=== PATIENT | female | born 1975 | race Caucasian/White ===

== ENCOUNTER 2020-11-09 18:39 | Emergency (ER) | payer MEDICAID ==
[~2020-11-09] VITALS: Ht 162.6 cm; Wt 74.4 kg
[2020-11-09 19:08] VITALS: BP 138/73
--- NOTE | 2020-11-09 19:08 | NUR ---
TO BED AMBULATORY
--- NOTE | 2020-11-09 19:50 | NUR ---
45 Y/O FEMALE PRESENTED TO THE ED C/O 07/18 SHARP CRAMPING PAIN IN HER LOWER ABD THAT RADIATES TO HER BACK X3 DAYS. PT DENIES TRAUMA TO THE AREA, PT STATED THAT SHE HAS HAD PREVIOUS FIBROIDS AND THAT THIS PAIN IS DIFFERENT FROM THEN. PT STATES SHE IS NOT . DENIES N/V/DIARRHEA. +FEVER/CHILLS. PT DENIES INGESTION OF PAIN MEDS TODAY. ABD IS NOT TENDER, +SUPRAPUBIC TENDERNESS, BOWEL SOUNDS NORMOACTIVEX4 QUADRANTS. PMH: GALLBLADDER REMOVED IN 2012 [facility]
--- NOTE | 2020-11-09 20:56 | NUR ---
DR. SCHWAB AT BEDSIDE FOR MEDICAL EVALUATION
--- NOTE | 2020-11-09 21:00 | NUR ---
PT IS LAYING IN LOW FOWLERS POSITION FOR COMFORT, BED IS LOCKED AND IN LOWEST POSITION. SIDE RAILSX1. NO ACUTE DISTRESS NOTED.
[2020-11-09] MEDS ORDERED: NACL 0.9% 1,000 ML IV SCH (21:05)
[2020-11-09] MEDS ORDERED: ONDANSETRON 4 MG/2 ML VIAL IVP ONE (21:05)
[2020-11-09] MEDS ORDERED: MORPHINE SULFATE 4 MG/ML SYR IVP ONE (21:05)
[2020-11-09 21:22] LABS: BASOPHILS # (AUTO) 0.1 K/uL (0.00-0.22); BASOPHILS % (AUTO) 0.6 % (0.0-2.0); EOSINOPHILS # (AUTO) 0.1 K/uL (0-0.4); EOSINOPHILS % (AUTO) 0.7 % (0.0-4.0); HEMATOCRIT 25.2 % (36-48); HEMOGLOBIN 7.7 g/dL (12.0-16.0); LYMPHOCYTES # (AUTO) 2.5 K/uL (2.5-16.5); LYMPHOCYTES % (AUTO) 22.6 % (20.5-51.1); MEAN CORPUSCULAR HEMOGLOBIN 20 pg (27-31); MEAN CORPUSCULAR HGB CONC 31 g/dL (33-37); MONOCYTES # (AUTO) 1.1 K/uL (0.8-1.0); MONOCYTES % (AUTO) 10.1 % (1.7-9.3); NEUTROPHILS # (AUTO) 7.4 K/uL (1.8-7.7); PLATELET COUNT (AUTO) 387 K/uL (140-450); RED BLOOD CELL COUNT(AUTO) 3.93 MIL/uL (4.20-5.40); RED CELL DISTRIBUTION WIDTH 21.9 % (11.6-13.7); WHITE BLOOD COUNT (AUTO) 11.2 K/uL (4.8-10.8)
--- NOTE | 2020-11-09 21:34 | NUR ---
CONSENT FORM FOR CT SCAN WITH IV CONTRAST SIGNED AND PLACED IN CHART
--- NOTE | 2020-11-09 21:45 | NUR ---
COMPOSITE MECHANIC AT BEDSIDE
[2020-11-09 21:46] LABS: APPEARANCE,URINE SL CLOUDY (CLEAR); BILIRUBIN,URINE NEGATIVE (NEGATIVE); BLOOD, URINE TRACE-I (NEGATIVE); COLOR,URINE YELLOW (YELLOW); LEUKOCYTE ESTERASE ,URINE NEGATIVE (NEGATIVE); NITRITE, URINE NEGATIVE (NEGATIVE); UGLUCOSE NEGATIVE (NEGATIVE)
[2020-11-09 22:06] LABS: ALBUMIN 3.1 g/dL (3.4-5.0); CARBON DIOXIDE 25.9 mmol/L (21-32); CREATININE 0.7 mg/dL (0.6-1.3); POTASSIUM 3.9 mmol/L (3.5-5.1); TOTAL BILIRUBIN 0.4 mg/dL (0.0-1.0)
--- NOTE | 2020-11-09 22:26 | NUR ---
CALLED CT DEPT TO NOTIFY THEM THAT THE PT IS READY FOR CT AND CONSENT HAS BEEN SIGNED
--- NOTE | 2020-11-09 23:00 | NUR ---
PT IS LAYING IN SEMI FOWLERS POSITION FOR COMFORT, BED IS LOCKED AND IN LOWEST POSITION. SIDE RAILSX1. NO ACUTE DISTRESS NOTED.
[2020-11-09] MEDS ORDERED: KETOROLAC 15 MG/ML VIAL IVP ONE (23:25)
[2020-11-09 23:30] VITALS: BP 128/64
--- NOTE | 2020-11-10 00:08 | NUR ---
IV removed, catheter intact and site benign. Applied folded 4x4 gauze and tape to stop bleeding.
--- NOTE | 2020-11-10 00:10 | NUR ---
Patient discharged with v/s stable. Written and verbal after care instructions given and explained. Patient alert, oriented and verbalized understanding of instructions. Ambulatory with steady gait. All questions addressed prior to discharge. ID band removed. Patient advised to follow up with PMD. Rx of MOTRIN, TYLENOL, AND ZOFRAN given. Patient educated on indication of medication including possible reaction and side effects. Opportunity to ask questions provided and answered.
== END 2020-11-10 00:10 | disposition home or self-care (01) ==
LOC: MED 18:39
DX: D25.9 Leiomyoma of uterus, unspecified (principal); D64.9 Anemia, unspecified
CPT/HCPCS: 36415; 74177; 76856; 80053; 81003; 83690; 84703; 85025; 96361; 96374; 96375; 99285; J1885; J2270; J2405; J7030; Q9967

== ENCOUNTER 2020-11-13 08:30 | Emergency (ER) | payer MEDICAID ==
[~2020-11-13] VITALS: Ht 162.6 cm; Wt 73.5 kg
[2020-11-13 08:33] VITALS: BP 128/88
[2020-11-13] MEDS ORDERED: HYDROcodone/APAP 5/325 MG 1 TAB TAB PO ONE (09:00)
[2020-11-13] MEDS ORDERED: KETOROLAC 60 MG/2 ML VIAL IM ONE (09:00)
[2020-11-13 09:22] VITALS: BP 128/88
== END 2020-11-13 09:23 | disposition home or self-care (01) ==
LOC: MED 08:30
DX: D25.9 Leiomyoma of uterus, unspecified (principal); D64.9 Anemia, unspecified
CPT/HCPCS: 81002; 81025; 96372; 99283; J1885

== ENCOUNTER 2021-03-02 10:19 | Emergency (ER) | payer MEDICAID ==
[~2021-03-02] VITALS: Ht 162.6 cm; Wt 73.9 kg
[2021-03-02 10:29] VITALS: BP 132/79
--- NOTE | 2021-03-02 11:08 | NUR ---
PATIENT AMBULATED TO BED 9.
--- NOTE | 2021-03-02 11:18 | NUR ---
45 Y/O FEMALE C/O R FOOT PAIN X 1 MONTH AND THE PAIN IS PROGRESSIVELY GETTING WORSE. PT DENIES INJURIES/FALLS. PT STATES THAT PAIN IS WORSE AFTER STANDING >30 MINUTES AND WALKING AND STATES THAT FOOT SWELLS. PT STATES THAT SHE HAS TO WEAR CLOSED SHOES AT WORK AND PAIN WORSENS. PT DENIES TAKING ANYTHING FOR PAIN. PT RATES PAIN 6/10 THAT SHE DESCRIBES THROBBING. PT STATES THAT PAIN RADIAITES FROM R 5TH DIGIT TO BOTTOM OF FOOT TO BACK OF KNEE. PT DENIES TAKING ANYTHING FOR PAIN. FULL ROM AND SENSATION. CAP REFILL <3 WITH PEDAL PULSES +2. PT A/O X4 WITH EVEN AND UNLABORED RESPIRATIONS. PMH: DENIES, ONLY FIBROIDS NKDA
--- NOTE | 2021-03-02 11:45 | NUR ---
DR ANDREWS AT BEDSIDE EVALUATING PT.
[2021-03-02 12:28] VITALS: BP 132/79
--- NOTE | 2021-03-02 12:29 | NUR ---
Patient discharged with v/s stable. Written and verbal after care instructions ABOUT BLISTERS ON FOOT given and explained. Patient verbalized understanding. Ambulatory with steady gait. All questions addressed prior to discharge. Advised to follow up with PMD.
== END 2021-03-02 12:29 | disposition home or self-care (01) ==
LOC: MED 10:19
DX: M79.674 Pain in right toe(s) (principal); L84 Corns and callosities
CPT/HCPCS: 73630; 99283

== ENCOUNTER 2021-04-06 10:32 | Emergency (ER) | payer MEDICAID ==
[~2021-04-06] VITALS: Ht 160 cm; Wt 76.2 kg
[2021-04-06 10:34] VITALS: BP 107/55
--- NOTE | 2021-04-06 10:45 | NUR ---
PT AMB TO BED 9
--- NOTE | 2021-04-06 10:45 | NUR ---
RN at pt bedside for evaluation.
--- NOTE | 2021-04-06 10:53 | NUR ---
UA COLLECTED BEDSIDE
--- NOTE | 2021-04-06 11:03 | NUR ---
Dr. Baron is evaluating the patient at bedside.
[2021-04-06] MEDS ORDERED: KETOROLAC 60 MG/2 ML VIAL IM ONE (11:05)
--- NOTE | 2021-04-06 11:33 | NUR ---
45 FEMALE C/O LOWER ABDOMINAL PAIN, VAGINAL BLEEDING, DIZZINESS, GENERALIZED WEAKNESS X YESTERDAY. PT STATES SHE IS EXPERINCING SHARP/BURNING PAIN IN LOWER ABDOMEN X1 DAY. PT STATES "BLEEDING HEAVILY AND LARGE CLOTS." PT STATES SHE HAS EXPERINCED NAUSEA, BUT NOT VOMITTING. PMH: ANEMIA, GALL BLADDER REMOVAL NKA
--- NOTE | 2021-04-06 11:52 | NUR ---
LAB BEDSIDE WITH PT
[2021-04-06 12:07] LABS: BASOPHILS % (AUTO) 0.5 % (0.0-2.0); EOSINOPHILS # (AUTO) 0.1 K/uL (0-0.4); HEMATOCRIT 26.3 % (36-48); HEMOGLOBIN 8.2 g/dL (12.0-16.0); LYMPHOCYTES # (AUTO) 1.4 K/uL (2.5-16.5); LYMPHOCYTES % (AUTO) 14.9 % (20.5-51.1); MEAN CORPUSCULAR HEMOGLOBIN 20 pg (27-31); MEAN CORPUSCULAR HGB CONC 31 g/dL (33-37); MEAN CORPUSCULAR VOLUME 65.7 fL (80-94); MONOCYTES # (AUTO) 0.8 K/uL (0.8-1.0); NEUTROPHILS # (AUTO) 7.2 K/uL (1.8-7.7); NEUTROPHILS % (AUTO) 75.6 % (42.2-75.2); PLATELET COUNT (AUTO) 403 K/uL (140-450); RED CELL DISTRIBUTION WIDTH 21.2 % (11.6-13.7); WHITE BLOOD COUNT (AUTO) 9.5 K/uL (4.8-10.8)
--- NOTE | 2021-04-06 12:45 | NUR ---
Dr. Baron is evaluating the patient at bedside.
[2021-04-06] MEDS ORDERED: IBUP-2213 PO (13:19)
[2021-04-06] MEDS ORDERED: ACET-8386 PO (13:19)
[2021-04-06] MEDS ORDERED: MEDR10TA PO (13:19)
[2021-04-06 13:27] VITALS: BP 112/72
--- NOTE | 2021-04-06 13:33 | NUR ---
Patient discharged with v/s stable. Written and verbal after care instructions given ABDOMINAL PAIN AND DYSFUNCTIONAL BLEEDING and explained. Patient alert, oriented and verbalized understanding of instructions. Ambulatory with steady gait. All questions addressed prior to discharge. ID band removed. Patient advised to follow up with PMD. Rx of NORCO 5MG-325MG PO Q6H PRN SEVERE PAIN, PROVERA 10MG PO DAILY, AND IBUPROFEN 600MG PO TID PRN MILD PAIN given. Patient educated on indication of medication including possible reaction and side effects. Opportunity to ask questions provided and answered.
== END 2021-04-06 13:33 | disposition home or self-care (01) ==
LOC: MED 10:32
DX: N93.8 Other specified abnormal uterine and vaginal bleeding (principal); Z90.49 Acquired absence of other specified parts of digestive tract
CPT/HCPCS: 36415; 81002; 81025; 85025; 96372; 99283; J1885

== ENCOUNTER 2021-04-27 17:20 | Emergency (ER) | payer MEDICAID ==
[~2021-04-27] VITALS: Ht 160 cm; Wt 77.1 kg
[~2021-04-27 17:20] MED LIST: ACET-8386 PO; IBUP-2213 PO; MEDR10TA PO
[2021-04-27 17:25] VITALS: BP 134/97
[2021-04-27] MEDS ORDERED: IBUPROFEN 600 MG TAB PO ONE (18:10)
[2021-04-27] MEDS ORDERED: IBUP-2213 PO (18:32)
--- NOTE | 2021-04-27 18:54 | NUR ---
d/c with VSS. d/c education given. rx of motrin given.
== END 2021-04-27 18:54 | disposition home or self-care (01) ==
LOC: MED 17:20
DX: S93.402A Sprain of unspecified ligament of left ankle, initial encounter (principal); R03.0 Elevated blood-pressure reading, without diagnosis of hypertension; Z79.899 Other long term (current) drug therapy; X58.XXXA Exposure to other specified factors, initial encounter; Y93.89 Activity, other specified; Y92.89 Other specified places as the place of occurrence of the external cause; Y99.8 Other external cause status
CPT/HCPCS: 73610; 99283

== ENCOUNTER 2021-10-15 17:18 | Emergency (ER) | payer MEDICAID, OTHER ==
[~2021-10-15] VITALS: Ht 162.6 cm; Wt 74.8 kg
[2021-10-15 17:32] VITALS: BP 141/93
[2021-10-15 18:36] LABS: BASOPHILS % (AUTO) 0.6 % (0.0-2.0); EOSINOPHILS # (AUTO) 0.1 K/uL (0-0.4); EOSINOPHILS % (AUTO) 1.3 % (0.0-4.0); HEMATOCRIT 20.3 % (36-48); LYMPHOCYTES # (AUTO) 1.7 K/uL (2.5-16.5); MEAN CORPUSCULAR HEMOGLOBIN 19 pg (27-31); MEAN CORPUSCULAR HGB CONC 31 g/dL (33-37); MEAN CORPUSCULAR VOLUME 60.6 fL (80-94); MONOCYTES # (AUTO) 0.5 K/uL (0.8-1.0); MONOCYTES % (AUTO) 8.8 % (1.7-9.3); NEUTROPHILS # (AUTO) 2.9 K/uL (1.8-7.7); NEUTROPHILS % (AUTO) 56.3 % (42.2-75.2); PLATELET COUNT (AUTO) 469 K/uL (140-450); RED BLOOD CELL COUNT(AUTO) 3.35 MIL/uL (4.20-5.40); RED CELL DISTRIBUTION WIDTH 20.4 % (11.6-13.7); WHITE BLOOD COUNT (AUTO) 5.2 K/uL (4.8-10.8)
[2021-10-15 18:42] LABS: HEMOGLOBIN 6.3 g/dL (12.0-16.0)
[2021-10-15 18:57] LABS: ANION GAP 12.9 (8-16); CARBON DIOXIDE 25.7 mmol/L (21-32); CREATININE 0.6 mg/dL (0.6-1.3); POTASSIUM 3.6 mmol/L (3.5-5.1)
[2021-10-15 19:04] LABS: ALBUMIN 3.2 g/dL (3.4-5.0); TOTAL BILIRUBIN 0.3 mg/dL (0.0-1.0)
[2021-10-15 19:20] LABS: PROTHROMBIN TIME 10.1 secs (10.8-13.4)
--- NOTE | 2021-10-15 19:58 | NUR ---
RECEIVED IN BED 7 WITH C/O WEAKNESS AND DIZZINESS. PT STATES SHE IS ANEMIC AND NEEDS A TRANSFUSION MEDHX: ANEMIA, FIBROIDS ALLERGIES: DENIES
--- NOTE | 2021-10-15 21:00 | NUR ---
STILL UNABLE TO GIVE UA
--- NOTE | 2021-10-15 23:00 | NUR ---
RESTING COMFORTABLY WITH EYES CLOSED. AWAITING BLOOD TRANSFUSION
--- NOTE | 2021-10-16 02:00 | NUR ---
Patient appears to be resting comfortably in bed. Vital Signs within normal limits. Respirations even and unlabored.
--- NOTE | 2021-10-16 05:55 | NUR ---
UNIT #1 PC'S BEGUN
--- NOTE | 2021-10-16 08:04 | NUR ---
PT RESTING COMFORTABLY. BLOOD STILL INFUSING. 0755 BP 97.9,81,16, 111/68.
--- NOTE | 2021-10-16 09:25 | NUR ---
PT DONE WITH BLOOD TRANSFUSION. Addendum: 10/16/21 at 0936 by [email or web address] VITALS STABLE AND WITHIN NORMAL RANGE.
[2021-10-16 09:52] VITALS: BP 107/74
--- NOTE | 2021-10-16 09:53 | NUR ---
Patient discharged with v/s stable. Written and verbal after care instructions given and explained. Patient verbalized understanding. Ambulatory with steady gait. All questions addressed prior to discharge. Advised to follow up with PMD.
== END 2021-10-16 09:53 | disposition home or self-care (01) ==
LOC: MED 17:18
DX: D64.9 Anemia, unspecified (principal)
CPT/HCPCS: 36415; 36430; 80053; 85025; 85610; 85730; 86886; 86900; 86901; 86920; 99285; P9016

== ENCOUNTER 2022-10-24 19:29 | Emergency (ER) | payer OTHER ==
[~2022-10-24] VITALS: Ht 162.6 cm; Wt 77.1 kg
[~2022-10-24 19:29] MED LIST changes: -ACET-8386 PO; +ACET-8905 PO
[2022-10-24 19:44] VITALS: BP 155/75
--- NOTE | 2022-10-24 19:47 | NUR ---
TO LOBBY A/W BED AMBULATORY
--- NOTE | 2022-10-24 20:25 | NUR ---
PT TO BED #7
--- NOTE | 2022-10-24 20:44 | NUR ---
IV started and labs collected
--- NOTE | 2022-10-24 21:11 | NUR ---
Dr. Stover examining patient.
[2022-10-24 21:27] LABS: BASOPHILS # (AUTO) 0.1 K/uL (0.00-0.22); BASOPHILS % (AUTO) 1.1 % (0.0-2.0); EOSINOPHILS # (AUTO) 0.2 K/uL (0-0.4); EOSINOPHILS % (AUTO) 2.7 % (0.0-4.0); HEMATOCRIT 23.7 % (36-48); HEMOGLOBIN 7.1 g/dL (12.0-16.0); LYMPHOCYTES # (AUTO) 2.6 K/uL (2.5-16.5); LYMPHOCYTES % (AUTO) 32.6 % (20.5-51.1); MEAN CORPUSCULAR HEMOGLOBIN 17 pg (27-31); MEAN CORPUSCULAR HGB CONC 30 g/dL (33-37); MEAN CORPUSCULAR VOLUME 56.4 fL (80-94); MONOCYTES # (AUTO) 0.6 K/uL (0.8-1.0); MONOCYTES % (AUTO) 6.9 % (1.7-9.3); NEUTROPHILS # (AUTO) 4.6 K/uL (1.8-7.7); NEUTROPHILS % (AUTO) 56.7 % (42.2-75.2); PLATELET COUNT (AUTO) 470 K/uL (140-450); RED BLOOD CELL COUNT(AUTO) 4.21 MIL/uL (4.20-5.40); RED CELL DISTRIBUTION WIDTH 22.9 % (11.6-13.7); WHITE BLOOD COUNT (AUTO) 8.1 K/uL (4.8-10.8)
[2022-10-24 21:43] LABS: ALBUMIN 3.6 g/dL (3.4-5.0); ANION GAP 9.8 (8-16); CARBON DIOXIDE 28.2 mmol/L (21-32); CREATININE 0.7 mg/dL (0.6-1.3); TOTAL BILIRUBIN 0.4 mg/dL (0.0-1.0)
[2022-10-24] MEDS ORDERED: POTASSIUM CHLORIDE 20% 40 MEQ/15 ML UDC PO ONE (21:55)
[2022-10-24] MEDS ORDERED: MORPHINE SULFATE 4 MG/ML SYR IVP ONE (23:00)
--- NOTE | 2022-10-24 23:15 | NUR ---
Blood tranfusion started. Alert and responsive at this time. No s/s distress. VSS
--- NOTE | 2022-10-25 00:06 | NUR ---
PT RESTING IN BED WITH HOB ELEVATED. PT ON CARDIAC MONTIOR . RESP EVEN AND UNLABORED. NO DISTRESS NOTED. PT IS PAIN FREE CURRENTLY. BED AT LOWEST POSITION AND LOCKED IN PLACE. SIDE RAILS UP X2
[2022-10-25 01:00] VITALS: BP 143/72
[2022-10-25] MEDS ORDERED: ACETAMINOPHEN EXTRA STRENGTH 500 MG TAB PO ONE (01:00)
--- NOTE | 2022-10-25 01:10 | NUR ---
TRANSFUSION COMPLETED. VS WNL. PT RESTING IN BED . BEDSIDE TECHNICAL SUPPORT ENGINEER ON PT
== END 2022-10-25 01:54 | disposition home or self-care (01) ==
LOC: MED 19:29
DX: D50.9 Iron deficiency anemia, unspecified (principal); E87.6 Hypokalemia; Z79.899 Other long term (current) drug therapy
CPT/HCPCS: 36415; 36430; 80053; 85025; 86886; 86900; 86901; 86920; 96374; 99285; J2270; P9016